=== PATIENT | male | born 1935 | race Caucasian/White ===

== ENCOUNTER 2016-06-21 10:54 | Emergency (ER) | payer MEDICARE, OTHER ==
--- NOTE | 2016-06-21 11:04 | EDPRACDOC ---
- General Information Stated Complaint: SHOB Time Seen by Provider: 06/21/16 11:01 Mode Of Arrival: Ambulance Home Medications: Home Medications Aspirin (Enteric Coated) [Ecotrin] 81 mg PO 1600 07/13/13 Cabergoline 0.5 mg PO WE 07/13/13 Furosemide [Lasix] 40 mg PO 0800 07/13/13 Nitroglycerin [Nitrostat] 0.4 mg SL Q5MX3 PRN 07/13/13 Ranitidine HCl [Zantac] 150 mg PO BID 07/13/13 Spironolactone [Aldactone] 25 mg PO 0800 07/13/13 Levothyroxine [Synthroid, Levoxyl] 125 mcg PO 1100 06/21/16 Magnesium Carbonate 420mg Tab 420 mg PO 1600 06/21/16 Ondansetron HCl [Zofran] 4 mg PO Q4H PRN 06/21/16 Oxycodone Immediate Release [Oxycodone Immediate Release (OxyIR)] 5 mg PO Q4H PRN 06/21/16 Sennosides/Docusate Sodium [Senokot-S Tablet] 2 each PO BID 06/21/16 Testosterone [Androgel] 5 gm TD 0800 06/21/16 Warfarin Sodium [Coumadin] 5.5 mg PO 1800 06/21/16 Allergies/Adverse Reactions: Allergies Allergy/AdvReac Type Severity Reaction Status Date / Time BEN Inhibitors Allergy Edema-Local Verified 06/21/16 10:57 ized diltiazem HCl [From Cardizem] Allergy Edema-Gener Verified 06/21/16 10:57 alized venom-honey bee Allergy Anaphylaxis Verified 06/21/16 10:57 [bee venom (honey bee)] * - History of Present Illness HPI: SEVERAL DAYS OF SHORTNESS OF BREATH. PROGRESSIVELY WORSE. TODAY ASSOCIATED WITH HYPOXIA HYPOTENSION AND TACHYCARDIA, CONFUSION ONE WEEK STATUS POST RIGHT TOTAL KNEE REPLACEMENT PERFORMED AT [facility].. HAS BEEN ON FULL-DOSE LOVENOX 120 TWICE DAILY AND HIS BRIDGING OVER TO COUMADIN. ANTICOAG PRIOR TO OPERATION ALSO. 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 ED Past Medical History - History Reviewed Yes Nurses notes reviewed and agree except as marked Information Unobtainable: Yes Unable to obtain information due to patient condition - Patient Medical History Cardiac History: Reports: Atrial Fibrillation, Hypertension, Heart Attack, Cardiomyopathy (SYSTOLIC DYSFUNCTION EF 48%, RV DYSFUNCTION ALSO. CHRONIC AF.) EDM Review of Systems - Review of Systems ROS Negative Except as Marked: Yes All systems reviewed and were negative except as marked ROS Unobtainable: Yes Review of systems cannot be obtained due to the patient's medical condition - Physical Exam Constitutional: Alert, Cachectic. negative: Well nourished, Well appearing Oriented to: Time, Person, Place Last recorded Vital Signs: Oxygen Pulse Oxygen Saturation O2 Device Oxygen Flow Rate Fraction of Inspired Oxygen ( FIO2) - HEENT Head: Normal Eye Exam: Pale Conjunctiva, Scleral Icterus Oropharynx: negative: Membranes Dry Neck: negative: Edema, Limited ROM, Lymphadenopathy, Meningeal Signs - Respiratory/Cardiovascular Respiratory: Diminished, Tachypnea Cardiovascular: Tachycardia, Irregular - GI Auscultation: Normal Palpation: Normal Tenderness: Non tender - Musculoskeletal Back: Normal Extremities: Normal - Integumentary Skin: Other (ECCHYMOSIS ABD WALL) - Neurologic Memory Impaired: Normal Mood Description: Normal Thought: negative: Coherent (CONFUSED) ED SOB MDM - Re-evaluation Re-evaluation 2 Re-evaluation Time: 12:56 (STABLE BP AND HR, NOT DECLINING) Re-evaluation 1 Re-evaluation Time: 11:35 (STABLE, COMFORTABLE) Re-evaluation 3 Re-evaluation Time: 13:39 Re-evaluation: ECHO PRELIM BY DR ROMO: NO SIGNIF EFFUSION, LV NL FUNCTION. RV PRESSURE NL - NO PULM HTN. TECH DIFFICULT. Re-evaluation 4 Re-evaluation Time: 13:51 (CONTINUES TO IMPROVE SBP 106, HR 135) Re-evaluation 5 Re-evaluation Time: 16:05 (TEMP 100 WITH SECOND BLOOD TRANSFUSION. STOPPED, ACET AND BENADRYL) Re-evaluation: AWAKE ALERT COMFORTABLE NO DISTRESS. MOVES ALL 4 EXTREMITIES ON COMMAND. LUNGS CLEAR TO AUSCULTATION WAS SECTIONED SOME FAINT CRACKLES NO RESPIRATORY DISTRESS VERY COMFORTABLE NON-REBREATHER WILL TAPER DOWN TO NASAL CANNULA. CARDIOVASCULAR IS TACHYCARDIC IRREGULAR RHYTHM. ABDOMEN SOFT NONTENDER NONDISTENDED NO SPLENOMEGALY NO REBOUND OR GUARDING. 6 Re-evaluation Time: 16:17 Re-evaluation: AWAKE AND ALERT, MOVES ALL 4 EXT.LOOKS MUCH IMPROVED. LUNGS CTA. CV TACHY IRREG. STABILIZED FOR SAFE TRANSPORT BY [facility] - Results Result Diagrams: 06/21/16 11:15 06/21/16 11:15 - EKG EKG #1 EKG Time: 11:17 -: Yes EKG interpreted by me Rate: bpm: 134 Foster: Normal Rhythm: Afib Hypertrophy: None ST: Nonsp - Diagnostic Imaging Chest Image interpreted by: Radiologist Diagnostic Imaging Comments: Patient Name: SHA GREENBERG LOC: ED : 1935 AGE: 80 Order Date:06/21/16 Date of Service: Report # [id number] Ord Physician: Shari Bowers MD Exam # [id number] Emergency Physician: Shari Bowers MD Exam(s): [id number] RAD/DG CHEST PORTABLE CLINICAL DATA: Sepsis EXAM: PORTABLE CHEST 1 VIEW COMPARISON: No prior studies available for comparison FINDINGS: Cardiomediastinal silhouette is unremarkable. Single lead cardiac pacemaker with lead in right ventricle. No acute infiltrate or pleural effusion. No pulmonary edema. IMPRESSION: No active disease. Electronically Signed By: Vasile Prabhakar M.D. On: 06/21/2016 12:55 Electronically Signed By: Vasile Prabhakar MD Electronically Signed Date/Time: 258 Dictate Date/Time: 06/21/16 1254 Technologist: Eve Robledo Transcribed By: Drea Transcribed Date/Time: 06/21/16 1255 ED Critical Care Note - Critical Care Note Total Time (mins): 35 Comments: Due to the presence of and / or the risk of deterioration, my attendance to this patient required critical care time, including assessment/reassessment, documentation, ordering and interpreting ancillary studies, discussion with ED staff and consultants,patient and family, and excludes time spent on separately billable procedures. - Departure Disposition: Trans. to Other Hospital Final Diagnosis: Blood loss anemia, Atrial fibrillation with rapid ventricular response, Hemorrhagic shock Instructions: A-fib (Atrial Fibrillation) (ED) Referrals: Florin Morse MD [Primary Care Provider] - One Week Prescriptions: No Action Ranitidine HCl [Zantac] 150 mg PO BID Nitroglycerin [Nitrostat] 0.4 mg SL Q5MX3 PRN PRN Reason: Chest Pain Or Discomfort Spironolactone [Aldactone] 25 mg PO 0800 Furosemide [Lasix] 40 mg PO 0800 Cabergoline 0.5 mg PO WE Aspirin (Enteric Coated) [Ecotrin] 81 mg PO 1600 Levothyroxine [Synthroid, Levoxyl] 125 mcg PO 1100 Testosterone [Androgel] 5 gm TD 0800 Ondansetron HCl [Zofran] 4 mg PO Q4H PRN PRN Reason: Nausea Oxycodone Immediate Release [Oxycodone Immediate Release (OxyIR)] 5 mg PO Q4H PRN PRN Reason: Pain Sennosides/Docusate Sodium [Senokot-S Tablet] 2 each PO BID Warfarin Sodium [Coumadin] 5.5 mg PO 1800 Magnesium Carbonate 420mg Tab 420 mg PO 1600 Forms: ED Discharge Instructions Decision to Transfer Time: 12:30 - Physician Consulted [facility] Time Called: 12:05 Provider Called: Elizabeth Raines Time Push Connector Assembler Returned Call: 12:30 (ACCEPTS IN TRANSFER, VOLUME RESUSC)
[2016-06-21 11:11] VITALS: BMI 31.1
[2016-06-21 11:24] LABS: ALLEN'S TEST PASS; TCO2 26.7 MMOL/L (23-27)
[2016-06-21 11:26] LABS: ABG Draw Site Right Radial
[2016-06-21 11:29] LABS: MPV 8.4 fL (7.4-10.4)
[2016-06-21 11:37] LABS: BLOOD UREA NITROGEN 34 MG/DL (9-20); CALC CORRECTED 8.6 MG/DL (8.4-10.2); CALCULATED OSMOLALITY 264 MOs/Kg (270-290); CHLORIDE 102 mEq/L (98-107); CPK TOTAL WITH POSSIBLE MB 360 IU/L (55-170); GLUCOSE 105 MG/DL (70-99); SODIUM LEVEL 133 mEq/L (137-146); TOTAL PROTEIN 5.2 G/DL (6.3-8.2)
[2016-06-21 11:51] LABS: PARTIAL THROMB. TIME 29.8 SEC (22-35); PT-INR 1.8
[2016-06-21 11:53] LABS: CPKMB 1.5 ng/mL (0-4.5)
[2016-06-21 12:16] LABS: SEG NEUTROPHIL 89 % (45-76)
[2016-06-21 12:38] LABS: LEUKOCYTES/URINE 2+ (NEGATIVE); NITRITE/URINE NEG (NEGATIVE); RBC/URINE 0-2 (0-2); URINE OCCULT BLOOD NEG (NEG/TRACE)
--- NOTE | 2016-06-21 12:58 | DIRPT ---
CLINICAL DATA: Sepsis EXAM: PORTABLE CHEST 1 VIEW COMPARISON: No prior studies available for comparison FINDINGS: Cardiomediastinal silhouette is unremarkable. Single lead cardiac pacemaker with lead in right ventricle. No acute infiltrate or pleural effusion. No pulmonary edema. IMPRESSION: No active disease. Electronically Signed By: Vasile Prabhakar M.D. On: 06/21/2016 12:55
--- NOTE | 2016-06-21 14:16 | CAPUECHO ---
INDICATION: SHOB, SUSPECT PE HEIGHT: 182.9 cm (6 ft 0.0 in) WEIGHT: 104.3 kg (230.0 lbs) BP: 99/68 BSA: 2.512063 m MEASUREMENTS 2D RVIDd: 3.1 cm LVOT Diam: 2.2 cm LA Diam: 4.8 cm EF Biplane: 66.61 % LAESV MOD A4C: 107.1 ml LAESV MOD A2C: 89.1 ml LAESV Index (A-L): 50.81 ml/m M-MODE IVSd: 0.9 cm LVIDd: 3.3 cm LVPWd: 0.9 cm LVIDs: 2.3 cm EF(Teich): 59 % Ao Diam: 3.9 cm LA Diam: 4.3 cm DOPPLER MV E Gerald: 1.35 m/s MV A Gerald: 0.00 m/s MV PHT: 50.88 ms MVA By PHT: 4.32 cm LVOT Vmax: 0.96 m/s AV Vmax: 1.41 m/s NACHO Vmax, Pt: 2.52 cm TR Vmax: 2.43 m/s TR maxP mmHg RVSP: 38.83 mmHg FINDINGS ------- Procedure:2D images, m-mode, color and spectral Doppler were obtained and reviewed. ECG rhythm:Resting tachycardia (HR>100bpm). Study quality:The study if of poor technical quality - endocardium not well seen in most views. Pat ient has BP 99/68 mmHg. Left Ventricle:The left ventricular size is normal. Left ventricular wall thickness is normal. Th e ejection fraction is clearly normal, EF between 60 - 65 %. Normal contraction in those segments visualized. Right Ventricle:The right ventricle is grossly normal in size, normal function by annular excursion. Endocardium not well seen. Left Atrium:The left atrium is mildly dilated. Right Atrium:The right atrium is normal in size and function. Electronic pacemaker lead seen in th e right atrial cavity. Aortic Valve:The aortic valve was not well visualized. There is mild aortic valve sclerosis, no st enosis or regurgitation by Doppler. Mitral Valve:The mitral valve was not well visualized. Thin pliable leaflets, no stenosis or regurg itation by Doppler. Tricuspid Valve:The tricuspid valve appears structurally normal. Mild tricuspid regurgitation pres ent. The right ventricular systolic pressure, as measured by Doppler, is 39mmHg. Pulmonic Valve:The pulmonic valve is normal. There is no pulmonic regurgitation present. Aorta:The aortic root is of normal dimension; ascending aorta and aortic arch not visualized. IVC:No IVC obtained. TDS subcostal lax and sax. Pericardium:There is no pericardial effusion. CONCLUSIONS 1. technically very difficult, sub=optimal study 2. normal global left ventricular systolic funct ion (ejection fraction) - not all segments visualized 3. grossly normal right ventricular size, a nd systolic function by TAPSE. Mild TR, normal pulm artery pressure suggested 4. no pericardial effusion Electronically Signed By: Roberto Olivarez MD-- Electronically Signed On: 13:45:31
[2016-06-21] MEDS ORDERED: ACETAMINOPHEN 325 MG/TAB TABLET PO ONE (16:05)
[2016-06-21] MEDS ORDERED: DIPHENHYDRAMINE 50 MG/ML VIAL IV ONE (16:05)
[2016-06-21] MEDS ORDERED: METOPROLOL 5 MG/5 ML SDV IV ONE (16:07)
[2016-06-21 16:41] VITALS: BP 102/58; PULSE 124; TEMP 99
== END 2016-06-21 16:38 | disposition short-term general hospital (02) ==
LOC: ED 10:54
DX: I48.91 Unspecified atrial fibrillation (principal); D62 Acute posthemorrhagic anemia
CPT/HCPCS: 36415; 36430; 36600; 71010; 80053; 81001; 82550; 82553; 82803; 83605; 83880; 84484; 85007; 85027; 85610; 85730; 86850; 86900; 86901; 86920; 87040; 87086; 93005; 96374; 96375; 99285; A9270; C8929; J1200; J3490; P9016; 93306